=== PATIENT | male | born 1950 | race Caucasian/White ===

== ENCOUNTER 2016-09-12 10:48 | Emergency (ER) | payer MEDICARE, MEDICAID ==
[2016-09-12 11:27] VITALS: RESP 16; TEMP 98.5; BMI 40.9
--- NOTE | 2016-09-12 13:50 | RAD ---
PROCEDURE: Radiographs of the Right Forearm HISTORY: pain COMPARISON: None available. TECHNIQUE: Frontal and lateral views obtained. FINDINGS: BONES: No fracture or destructive lesion. JOINT SPACES: Unremarkable. OTHER FINDINGS: Atherosclerotic arterial vascular calcification distal forearm ulnar aspect - also noted along the volar aspect of the entire distal forearm IMPRESSION: No fracture or lytic lesion. Arteriovascular calcifications
--- NOTE | 2016-09-12 13:51 | RAD ---
PROCEDURE: Radiographs of the Right Shoulder HISTORY: pain COMPARISON: No prior. FINDINGS: BONES: Minimal subchondral sclerotic and cystic changes -juxta articular acromioclavicular joint and humeral head -greater tuberosity. No fracture. JOINTS: Glenohumeral and acromioclavicular osteoarthritis. SOFT TISSUES: Normal. OTHER FINDINGS: None. IMPRESSION: Arthrosis. No fracture or lytic lesion
--- NOTE | 2016-09-12 14:23 | ED PDOC ---
Arrival/HPI - General Chief Complaint: Upper Extremity Problem/Injury Time Seen by Provider: 09/12/16 12:32 Historian: Patient, Family - History of Present Illness Narrative History of Present Illness (Text): 09/12/16 14:58 Patient c/o right arm pain for several months, worse for the last 2 weeks. Patient sts he had surgery on the right wrist years ago in [place]. Pain is in the area of surgical scar and radiates up to the arm. Patient describes pain as electric shock feeling. Patient denies any fever, swelling, erythema, Denies any recent injuries. Past Medical History - Provider Review Nursing Documentation Reviewed: Yes - Infectious Disease Hx of Infectious Diseases: None - Tetanus Immunization Tetanus Immunization: Unknown - Cardiac Hx Cardiac Disorders: Yes Hx Hypertension: Yes - Pulmonary Hx Respiratory Disorders: Yes Hx Asthma: Yes - Neurological Hx Neurological Disorder: No - HEENT Hx HEENT Disorder: Yes Other/Comment: OTITIS - Renal Hx Renal Disorder: No - Endocrine/Metabolic Hx Endocrine Disorders: Yes Hx Diabetes Mellitus Type 1: Yes - Hematological/Oncological Hx Blood Disorders: No - Integumentary Hx Dermatological Disorder: No - Musculoskeletal/Rheumatological Hx Musculoskeletal Disorders: No - Gastrointestinal Hx Gastrointestinal Disorders: Yes Hx Diverticulitis: Yes - Genitourinary/Gynecological Hx Genitourinary Disorders: No - Psychiatric Hx Psychophysiologic Disorder: No Hx Depression: No Hx Substance Use: No - Past Surgical History Past Surgical History: No Previous - Surgical History Other/Comment: COLON - Anesthesia Hx Anesthesia: Yes - Suicidal Assessment Feels Threatened In Home Enviroment: No Family/Social History Family/Social History: Unknown Family HX Smoking Status: Current Some Days Smoker Hx Alcohol Use: No Hx Substance Use: No Hx Substance Use Treatment: No Allergies/Home Meds Allergies/Adverse Reactions: Allergies No Known Allergies Allergy (Verified 01/05/15 10:58) Home Medications: Home Meds Medication Instructions Recorded Confirmed Insulin Human Regular [HumuLIN R] 2 unit SC DAILY 09/04/12 01/05/15 Lisinopril 10 mg PO DAILY 09/04/12 01/05/15 Simvastatin 20 mg PO DAILY 09/04/12 01/05/15 Ibuprofen [Motrin Tab] 800 mg PO Q6 PRN 01/04/15 01/05/15 Insulin Glargine, Recombinan 55 units SC HS 01/05/15 01/05/15 [Lantus] Review of Systems - Physician Review All systems were reviewed & negative as marked: Yes - Review of Systems Musculoskeletal: Other (arm pain) Physical Exam Vital Signs Reviewed: Yes Vital Signs Temp Pulse Resp BP Pulse Ox 09/12/16 14:25 72 16 132/72 98 09/12/16 11:22 98.5 F 75 16 130/88 97 Temperature: Afebrile Blood Pressure: Normal Pulse: Regular Respiratory Rate: Normal Appearance: Positive for: Well-Appearing, Non-Toxic, Comfortable Pain Distress: None Mental Status: Positive for: Alert and Oriented X 3 - Systems Exam Head: Present: Atraumatic, Normocephalic Upper Extremity: Present: NORMAL PULSES, Capillary Refill < 2s, Other (hand muscular dystrophy, weakness of the hand, volar forearm with tenderness). No: Swelling, Erythema, Temperature Abnormalties Skin: Present: Warm, Dry, Normal Color. No: Rashes, Erythematous Medical Decision Making ED Course and Treatment: 09/12/16 15:10 Xray of shoulder and forearm didn't show any acute abnormalities. Patient was treated with Neurontin and was d/c home with PMD and Ortho follow up. - RAD Interpretation Radiology Orders: 09/12/16 12:32 FOREARM RIGHT [RAD] Stat SHOULDER RIGHT [RAD] Stat - Medication Orders Current Medication Orders: Discontinued Medications Gabapentin (Neurontin) 300 mg PO STAT STA Stop: 09/12/16 12:40 Last Admin: 09/12/16 13:11 Dose: 300 mg Disposition/Present on Arrival - Present on Arrival Any Indicators Present on Arrival: No History of DVT/PE: No History of Uncontrolled Diabetes: Yes Urinary Catheter: No History of Decub. Ulcer: No History Surgical Site Infection Following: None - Disposition Have Diagnosis and Disposition been Completed?: Yes Diagnosis: Arm pain Disposition: HOME/ ROUTINE Disposition Time: 14:21 Patient Plan: Discharge Condition: STABLE Discharge Instructions (ExitCare): Arm Pain (ED) Additional Instructions: Follow up with PMD and Orthopedist within 1-2 days. Return to ED if feel worse. Prescriptions: Gabapentin [Neurontin] 100 mg PO TID #60 capsule traMADol/Acetaminophen [Ultracet 325 MG-37.5 MG] 1 tab PO Q6 PRN #30 tab PRN Reason: Pain Referrals: Alexander Mireles MD [Primary Care Provider] - Follow up with primary Alysa Oconnor MD [Staff Provider] - Follow up with primary [employer] [facility] [Outside] - Follow up with primary Forms: [employer] (Albanian)
[2016-09-12 14:39] VITALS: BP 132/72; PULSE 72; O2SAT 98
== END 2016-09-12 14:25 | disposition home or self-care (01) ==
LOC: ED 10:48
DX: M79.601 Pain in right arm (principal); I10 Essential (primary) hypertension; E10.9 Type 1 diabetes mellitus without complications

== ENCOUNTER 2017-02-27 20:25 | Emergency (ER) | payer MEDICARE, MEDICAID ==
[2017-02-27 20:26] VITALS: BMI 40.9
[2017-02-27 20:52] VITALS: TEMP 98.6
--- NOTE | 2017-02-27 21:12 | ED PDOC ---
Arrival/HPI - General Chief Complaint: High Blood Sugar Time Seen by Provider: 02/27/17 20:32 Historian: Patient - History of Present Illness Narrative History of Present Illness (Text): 02/27/17 21:09 Alexander Hernandez is a 66 year old male, whose past medical history includes diabetes, hypertension, and hyperlipidemia, who presents to the Emergency department complaining of right shoulder pain today. Patient reports he has history of similar right shoulder pain in the past and notes he took Tramadol at home with relief. Patient also notes he was hyperglycemic earlier tonight with a blood sugar of 530. Patient states he took insulin at home prior to arrival, fingerstick in ED was 249. Patient states he feels completely fine and denies any fever, chest pain, shortness of breath, nausea, vomiting, back pain, neck pain, headache, dizziness, or any other complaints. PMD: Dr. Mireles Symptom Onset: Gradual Symptom Course: Unchanged Activities at Onset: Light Context: Home Past Medical History - Provider Review Nursing Documentation Reviewed: Yes - Infectious Disease Hx of Infectious Diseases: None - Tetanus Immunization Tetanus Immunization: Unknown - Cardiac Hx Cardiac Disorders: Yes Hx Hypertension: Yes - Pulmonary Hx Respiratory Disorders: Yes Hx Asthma: Yes - Neurological Hx Neurological Disorder: No - HEENT Hx HEENT Disorder: Yes Other/Comment: OTITIS - Renal Hx Renal Disorder: No - Endocrine/Metabolic Hx Endocrine Disorders: Yes Hx Diabetes Mellitus Type 1: Yes - Hematological/Oncological Hx Blood Disorders: No - Integumentary Hx Dermatological Disorder: No - Musculoskeletal/Rheumatological Hx Musculoskeletal Disorders: Yes Other/Comment: R SHOULDER PAIN - Gastrointestinal Hx Gastrointestinal Disorders: Yes Hx Diverticulitis: Yes - Genitourinary/Gynecological Hx Genitourinary Disorders: No - Psychiatric Hx Psychophysiologic Disorder: No Hx Depression: No Hx Substance Use: No - Past Surgical History Past Surgical History: No Previous - Surgical History Other/Comment: COLON - Anesthesia Hx Anesthesia: Yes - Suicidal Assessment Feels Threatened In Home Enviroment: No Family/Social History - Physician Review Nursing Documentation Reviewed: Yes Family/Social History: Unknown Family HX Smoking Status: Current Some Days Smoker Hx Alcohol Use: No Hx Substance Use: No Hx Substance Use Treatment: No Allergies/Home Meds Allergies/Adverse Reactions: Allergies No Known Allergies Allergy (Verified 02/27/17 20:45) Home Medications: Home Meds Medication Instructions Recorded Confirmed Insulin Human Regular [HumuLIN R] 2 unit SC DAILY 09/04/12 02/28/17 Lisinopril 10 mg PO DAILY 09/04/12 02/28/17 Simvastatin 20 mg PO DAILY 09/04/12 02/28/17 Ibuprofen [Motrin Tab] 800 mg PO Q6 PRN 01/04/15 02/28/17 Insulin Glargine, Recombinan 55 units SC HS 01/05/15 02/28/17 [Lantus] Review of Systems - Physician Review All systems were reviewed & negative as marked: Yes - Review of Systems Constitutional: Normal. absent: Fevers Eyes: Normal ENT: Normal Respiratory: Normal. absent: SOB, Cough Cardiovascular: Normal. absent: Chest Pain Gastrointestinal: Normal. absent: Abdominal Pain, Diarrhea, Nausea, Vomiting Genitourinary Male: Normal. absent: Dysuria, Frequency, Hematuria, Urinary Output Changes Musculoskeletal: Arthralgias (+right shoulder pain) Skin: Normal. absent: Rash Neurological: Normal. absent: Headache, Dizziness Endocrine: Other (+elevated blood sugar) Hemo/Lymphatic: Normal Psychiatric: Normal Physical Exam Vital Signs Reviewed: Yes Vital Signs Temp Pulse Resp BP Pulse Ox 02/27/17 23:11 73 18 146/94 H 99 02/27/17 20:46 98.6 F 89 17 147/90 98 Temperature: Afebrile Blood Pressure: Normal Pulse: Regular Respiratory Rate: Normal Appearance: Positive for: Well-Appearing, Non-Toxic, Comfortable Pain Distress: None Mental Status: Positive for: Alert and Oriented X 3 - Systems Exam Head: Present: Atraumatic, Normocephalic Pupils: Present: PERRL Extroacular Muscles: Present: EOMI Conjunctiva: Present: Normal Mouth: Present: Moist Mucous Membranes Neck: Present: Normal Range of Motion Respiratory/Chest: Present: Clear to Auscultation, Good Air Exchange. No: Respiratory Distress, Accessory Muscle Use Cardiovascular: Present: Regular Rate and Rhythm, Normal S1, S2. No: Murmurs Abdomen: Present: Normal Bowel Sounds. No: Tenderness, Distention, Peritoneal Signs Back: Present: Normal Inspection Upper Extremity: Present: Normal Inspection, Tenderness (mild palpable tenderness right anterior shoulder/discomfort with abduction). No: Cyanosis, Edema Lower Extremity: Present: Normal Inspection. No: Edema Neurological: Present: GCS=15, CN II-XII Intact, Speech Normal Skin: Present: Warm, Dry, Normal Color. No: Rashes Psychiatric: Present: Alert, Oriented x 3, Normal Insight, Normal Concentration Medical Decision Making ED Course and Treatment: 02/27/17 21:09 Impression: 66 year old male complaining of right shoulder pain and hyperglycemia. Plan: -- Labs -- XR Right Shoulder -- IV fluids -- Reassess and disposition Progress Notes: 02/27/17 22:08 XR Right Shoulder, shows chronic arthritic changes. 02/27/17 23:15 On re-evaluation, patient feels better and is in no acute distress. I have discussed the results and plan with the patient, who expresses understanding. Patient in agreement with plan to be discharged home. Patient is stable for discharge. Patient was instructed to follow up with physician or return if symptoms worsen or new concerning symptoms arise. - Lab Interpretations Lab Results: 02/27/17 22:25 02/27/17 22:25 Lab Results 02/27/17 22:25: WBC 5.3, RBC 5.07, Hgb 13.7 L, Hct 41.8 L, MCV 82.4, MCH 27.0, MCHC 32.8, RDW 13.6, Plt Count 209, MPV 10.4 02/27/17 22:25: Sodium 141, Potassium 4.6, Chloride 102, Carbon Dioxide 27, Anion Gap 16, BUN 21, Creatinine 1.1, Est GFR ( Amer) > 60, Est GFR (Non- Af Amer) > 60, Random Glucose 144 H, Calcium 9.8, Total Bilirubin 0.3, AST 20, ALT 40, Alkaline Phosphatase 69, Total Protein 7.5, Albumin 4.2, Globulin 3.3, Albumin/Globulin Ratio 1.3 02/27/17 20:38: POC Glucose (mg/dL) 249 H I have reviewed the lab results: Yes - RAD Interpretation Radiology Orders: 02/27/17 21:12 SHOULDER RIGHT [RAD] Stat Cuff Turner Machine 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: ED Physician - Medication Orders Current Medication Orders: Discontinued Medications Sodium Chloride (Sodium Chloride 0.9%) 500 mls @ 500 mls/hr IV .Q1H STA Stop: 02/27/17 22:15 Last Admin: 02/27/17 22:19 Dose: 500 mls/hr eMAR Start Stop Document 02/27/17 22:19 OCS (Rec: 02/27/17 22:20 OCS [id number]) Intravenous Solution Start Date 02/27/17 Start Time 22:20 End Date 02/27/17 End time 23:20 Total Infusion Time 60 - Scribe Statement The provider has reviewed the documentation as recorded by the Scribe Patricia Machado All medical record entries made by the Scribe were at my direction and personally dictated by me. I have reviewed the chart and agree that the record accurately reflects my personal performance of the history, physical exam, medical decision making, and the department course for this patient. I have also personally directed, reviewed, and agree with the discharge instructions and disposition. Disposition/Present on Arrival - Present on Arrival Any Indicators Present on Arrival: No History of DVT/PE: No History of Uncontrolled Diabetes: Yes Urinary Catheter: No History of Decub. Ulcer: No History Surgical Site Infection Following: None - Disposition Have Diagnosis and Disposition been Completed?: Yes Diagnosis: Diabetes mellitus, Bursitis Disposition: HOME/ ROUTINE Disposition Time: 23:15 Patient Plan: Discharge Condition: GOOD Discharge Instructions (ExitCare): Shoulder Bursitis (ED), Diabetes Mellitus Type 2 in Adults (ED) Additional Instructions: Continue your pain meds as prescribed/adjust your insulin dosing as explained/ follow up with your doctor this week Forms: [employer] (Hungarian)
[2017-02-27] MEDS ORDERED: Sodium Chloride 0.9% 500 ML IV STA (21:16)
[2017-02-27 22:34] LABS: HEMOGLOBIN 13.7 g/dL (14.0-18.0); MEAN CELL VOLUME 82.4 fl (80.0-105.0); MEAN CORPUSCULAR HGB CONC 32.8 g/dl (31.0-37.0); MEAN PLATELET VOLUME 10.4 fl (7.0-11.0); RBC 5.07 10^6/uL (3.5-6.1); RED CELL DISTRIBUTION WIDTH 13.6 % (11.5-14.5); WHITE BLOOD COUNT 5.3 10^3/ul (4.5-11.0)
[2017-02-27 22:45] LABS: ALB/GLOB RATIO 1.3 (1.1-1.8); ALBUMIN 4.2 g/dL (3.0-4.8); ALT/SGPT 40 U/L (7-56); AST/SGOT 20 U/L (17-59); BLOOD UREA NITROGEN 21 mg/dL (7-21); CALCIUM 9.8 mg/dL (8.4-10.5); GFR AFRICAN-AMERICAN > 60; GFR NON-AFRICAN AMERICAN > 60
[2017-02-27 23:11] VITALS: BP 146/94; PULSE 73; RESP 18; O2SAT 99
--- NOTE | 2017-02-28 08:19 | RAD ---
PROCEDURE: Radiographs of the Right Shoulder HISTORY: shoulder pain COMPARISON: No prior. FINDINGS: BONES: Normal. No fracture. JOINTS: Normal. Glenohumeral and acromioclavicular joints preserved. No osteoarthritis. SOFT TISSUES: Normal. OTHER FINDINGS: None. IMPRESSION: Normal radiographs of the right shoulder.
== END 2017-02-27 23:20 | disposition home or self-care (01) ==
LOC: ED 20:25
DX: E10.65 Type 1 diabetes mellitus with hyperglycemia (principal); Z79.4 Long term (current) use of insulin; M75.51 Bursitis of right shoulder; E78.5 Hyperlipidemia, unspecified; I10 Essential (primary) hypertension
CPT/HCPCS: 73030; 80053; 82948; 85027; 96360; 99283; J7040

== ENCOUNTER 2018-04-03 09:25 | Emergency (ER) | payer MEDICARE, MEDICAID ==
[2018-04-03 09:33] VITALS: BMI 39.9
[2018-04-03 09:37] VITALS: TEMP 97.3
--- NOTE | 2018-04-03 10:21 | ED PDOC ---
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 Patient states he lost his balance while getting out of bed. Patient informs he was dizzy prior to getting out of bed and is still dizzy in the emergency department. Patient states he has been feeling weak this month. Patient denies fevers, chills, headache, shortness of breath, dyspnea on exertion, cough, abdominal pain, nausea, vomiting, diarrhea, back pain, neck pain, or any other complaint. Time/Duration: 1-3 hours Symptom Onset: Sudden Symptom Course: Unchanged Quality: Stabbing (sharp chest pain) Activities at Onset: Light Context: Standing Past Medical History - Provider Review Nursing Documentation Reviewed: Yes - Infectious Disease Hx of Infectious Diseases: None - Tetanus Immunization Tetanus Immunization: Unknown - Cardiac Hx Cardiac Disorders: Yes Hx Hypertension: Yes - Pulmonary Hx Respiratory Disorders: Yes Hx Asthma: Yes - Neurological Hx Neurological Disorder: No - HEENT Hx HEENT Disorder: Yes Other/Comment: OTITIS - Renal Hx Renal Disorder: No - Endocrine/Metabolic Hx Endocrine Disorders: Yes Hx Diabetes Mellitus Type 1: Yes - Hematological/Oncological Hx Blood Disorders: No - Integumentary Hx Dermatological Disorder: No - Musculoskeletal/Rheumatological Hx Musculoskeletal Disorders: Yes Other/Comment: R SHOULDER PAIN - Gastrointestinal Hx Gastrointestinal Disorders: Yes Hx Diverticulitis: Yes - Genitourinary/Gynecological Hx Genitourinary Disorders: No - Psychiatric Hx Psychophysiologic Disorder: No Hx Substance Use: No - Past Surgical History Past Surgical History: No Previous - Surgical History Other/Comment: COLON - Anesthesia Hx Anesthesia: No Hx Anesthesia Reactions: No Hx Malignant Hyperthermia: No - Suicidal Assessment Feels Threatened In Home Enviroment: No Family/Social History - Physician Review Nursing Documentation Reviewed: Yes Family/Social History: No Known Family HX Smoking Status: Current Some Days Smoker Hx Alcohol Use: No Hx Substance Use: No Hx Substance Use Treatment: No Allergies/Home Meds Allergies/Adverse Reactions: Allergies No Known Allergies Allergy (Verified 04/03/18 09:33) Home Medications: Home Meds Medication Instructions Recorded Confirmed Insulin Human Regular [HumuLIN R] 2 unit SC DAILY 09/04/12 04/03/18 Lisinopril 10 mg PO BID 09/04/12 04/03/18 Insulin Glargine, Recombinan 55 units SC HS 01/05/15 04/03/18 [Lantus] Atorvastatin [Lipitor] 1 tab PO DAILY 04/03/18 04/03/18 Diclofenac Sodium [Diclofenac 1 tab PO DAILY 04/03/18 04/03/18 Sodium ER] Meclizine HCl [Motion Sickness II] 1 tab PO DAILY 04/03/18 04/03/18 Meloxicam [Mobic] 1 tab PO DAILY 04/03/18 04/03/18 Metformin HCl [Glucophage] 1 tab PO BID 04/03/18 04/03/18 Metoprolol Tartrate [Lopressor] 1 tab PO BID 04/03/18 04/03/18 Tamsulosin HCl [Flomax] 1 cap PO DAILY 04/03/18 04/03/18 traMADol/Acetaminophen [Ultracet 1 tab PO BID PRN 04/03/18 04/03/18 325 MG-37.5 MG] Review of Systems - Physician Review All systems were reviewed & negative as marked: Yes - Review of Systems Constitutional: absent: Fevers, Night Sweats Respiratory: absent: SOB, Cough Cardiovascular: Chest Pain Gastrointestinal: absent: Abdominal Pain, Diarrhea, Nausea, Vomiting Musculoskeletal: absent: Back Pain, Neck Pain Neurological: Dizziness. absent: Headache Physical Exam Vital Signs Reviewed: Yes Vital Signs Temp Pulse Pulse Resp BP BP Pulse Ox 04/03/18 09:50 93 H 132/78 04/03/18 09:33 97.3 F L 87 18 132/78 97 Temperature: Afebrile Blood Pressure: Normal Pulse: Regular Respiratory Rate: Normal Appearance: Positive for: Well-Appearing, Non-Toxic, Comfortable Pain Distress: None Mental Status: Positive for: Alert and Oriented X 3 Finger Stick Blood Glucose: 360 - Systems Exam Head: Present: Atraumatic, Normocephalic Pupils: Present: PERRL Extroacular Muscles: Present: EOMI Conjunctiva: Present: Normal Mouth: Present: Moist Mucous Membranes Neck: Present: Normal Range of Motion Respiratory/Chest: Present: Wheezes (minimal expiratory wheezing in right lung), Decreased Breath Sounds (diminished breath sounds bilaterally ). No: Clear to Auscultation, Good Air Exchange, Respiratory Distress, Accessory Muscle Use Cardiovascular: Present: Regular Rate and Rhythm, Normal S1, S2. No: Murmurs, Rub, Gallop Abdomen: Present: Distention. No: Tenderness, Peritoneal Signs Back: Present: Normal Inspection Upper Extremity: Present: Normal Inspection. No: Cyanosis, Edema Lower Extremity: Present: Normal Inspection, Neurovascularly Intact, Capillary Refill < 2 s. No: Edema Neurological: Present: GCS=15, Speech Normal Skin: Present: Warm, Dry, Normal Color. No: Rashes Psychiatric: Present: Alert, Oriented x 3, Normal Insight, Normal Concentration Medical Decision Making ED Course and Treatment: 04/03/18 09:28 Impression: Patient is a 67 year old male who presents to the emergency department with complaints of chest pain s/p fall Plan: -- Labs -- CT Head W/O Contrast -- EKG -- Chest X-Ray -- Urinalysis -- IV Insertion -- Reassess and disposition Prior Visits: Notes and results from previous visits were reviewed. Progress Notes: 04/03/18 16:12 Labs reviewed with patient's blood sugars noted to be initially in 300s. Labs show absence of anion gap or evidence of DKA. Subsequent blood sugar measurements and 4L reveal a final FSG of 172. Patient updated on results and will follow up with his PCP for medication reconciliation. He demonstrates understanding and will follow up. - Lab Interpretations Lab Results: 04/03/18 10:15 04/03/18 10:15 Lab Results 04/03/18 12:13: POC Glucose (mg/dL) 307 H 04/03/18 11:10: Urine Color Yellow, Urine Appearance Clear, Urine pH 6.0, Ur Specific [place] 1.025, Urine Protein Trace H, Urine Glucose (UA) 500 H, Urine Ketones Negative, Urine Blood Negative, Urine Nitrate Negative, Urine Bilirubin Negative, Urine Urobilinogen 0.2, Ur Leukocyte Esterase Negative, Urine RBC 0 - 2, Urine WBC 1 - 3, Ur Epithelial Cells 0 - 2, Amorphous Sediment Few, Urine Bacteria Many, Coarse Granular Casts Trace, Urine Other Uyeast 04/03/18 10:15: PT 13.5 H, INR 1.19, APTT 38.4 H 04/03/18 10:15: Sodium 139, Potassium 4.3, Chloride 101, Carbon Dioxide 30, Anion Gap 13, BUN 24 H, Creatinine 1.1, Est GFR ( Amer) > 60, Est GFR (Non-Af Amer) > 60, Random Glucose 324 H* D, Calcium 9.5, Total Bilirubin 0.5, AST 15 L D, ALT 16, Alkaline Phosphatase 92, Troponin I < 0.01, NT-Pro-B Natriuret Pep 52.7, Total Protein 7.7, Albumin 4.4, Globulin 3.2, Albumin/Globulin Ratio 1.4 04/03/18 10:15: WBC 5.5, RBC 5.38, Hgb 14.4, Hct 44.1, MCV 82.0, MCH 26.8, MCHC 32.7, RDW 13.5, Plt Count 205, MPV 11.0, Neut % (Auto) 72.2 H, Lymph % (Auto) 19.5 L, Hyde % (Auto) 6.5 H, Eos % (Auto) 1.4 L, Baso % (Auto) 0.4, Lymph # (Auto) 1.1 L, Hyde # (Auto) 0.4, Eos # (Auto) 0.1, Baso # (Auto) 0.02, Absolute Neuts (auto) 3.99, ESR 26 H 04/03/18 09:44: POC Glucose (mg/dL) 360 H I have reviewed the lab results: Yes - RAD Interpretation Narrative RAD Interpretations (Text): 04/03/18 15:26 Chest X-Ray shows: FINDINGS: LUNGS: No active pulmonary disease. PLEURA: No significant pleural effusion identified, no pneumothorax apparent. CARDIOVASCULAR: No aortic atherosclerotic calcification present. Normal cardiac size. No pulmonary vascular congestion. OSSEOUS STRUCTURES: No significant abnormalities. VISUALIZED UPPER ABDOMEN: Normal. OTHER FINDINGS: None. IMPRESSION: No active disease. 04/03/18 16:18 CT Head W/O Contrast shows: FINDINGS: HEMORRHAGE: No intracranial hemorrhage. BRAIN: Stable mild diffuse cerebral atrophy is appreciated with interval trace periventricular chronic microangiopathy white-matter signal lucency appreciated. There is no mass effect. Midline brain anatomy is unremarkable and there is no suspicious extra-axial collection appreciated throughout. VENTRICLES: Unremarkable. No hydrocephalus. CALVARIUM: No destructive bony lesion or displaced fracture identified including through the skullbase. PARANASAL SINUSES: Unremarkable as visualized. No significant inflammatory changes. MASTOID AIR CELLS: Unremarkable as visualized. No inflammatory changes. OTHER FINDINGS: None. IMPRESSION: Age-appropriate age related neuro degenerative changes are appreciated in the interval. No acute intracranial findings or fracture appreciable. 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 - Medication Orders Current Medication Orders: 04/03/18 16:17 Discontinued Medications Sodium Chloride (Sodium Chloride 0.9%) 1,000 mls @ 999 mls/hr IV .Q1H1M STA Stop: 04/03/18 12:02 Last Admin: 04/03/18 11:17 Dose: 999 mls/hr eMAR Start Stop Document 04/03/18 11:17 KV (Rec: 04/03/18 11:18 KV [id number]) Intravenous Solution Start Date 04/03/18 Start Time 11:18 Sodium Chloride (Sodium Chloride 0.9%) 1,000 mls @ 999 mls/hr IV .Q1H1M STA Stop: 04/03/18 13:27 Last Admin: 04/03/18 12:32 Dose: 999 mls/hr eMAR Start Stop Document 04/03/18 12:32 KV (Rec: 04/03/18 12:32 KV [id number]) Intravenous Solution Start Date 04/03/18 Start Time 12:32 Sodium Chloride (Sodium Chloride 0.9%) 1,000 mls @ 999 mls/hr IV .Q1H1M STA Stop: 04/03/18 15:39 Last Admin: 04/03/18 14:42 Dose: 999 mls/hr eMAR Start Stop Document 04/03/18 14:42 KV (Rec: 04/03/18 14:42 KV [id number]) Intravenous Solution Start Date 04/03/18 Start Time 14:42 Insulin Human Regular (Humulin R) 6 units SC ONCE ONE Stop: 04/03/18 11:04 Last Admin: 04/03/18 11:16 Dose: 6 unit MAR Blood Glucose Document 04/03/18 11:16 KV (Rec: 04/03/18 11:17 KV [id number]) Blood Glucose Finger Stick Blood Glucose (70-120) 360 Subcutaneous Administrations Document 04/03/18 11:16 KV (Rec: 04/03/18 11:17 KV [id number]) Injection Site MAR Injection Site Right Arm Charges for Administration # of Subcutaneous Administrations 1 - Scribe Statement The provider has reviewed the documentation as recorded by the Scribe Aleksey Shipley All medical record entries made by the Scribe were at my direction and personally dictated by me. I have reviewed the chart and agree that the record accurately reflects my personal performance of the history, physical exam, medical decision making, and the department course for this patient. I have also personally directed, reviewed, and agree with the discharge instructions and disposition. Disposition/Present on Arrival - Present on Arrival Any Indicators Present on Arrival: Yes History of DVT/PE: No History of Uncontrolled Diabetes: Yes Urinary Catheter: No History of Decub. Ulcer: No History Surgical Site Infection Following: None - Disposition Have Diagnosis and Disposition been Completed?: Yes Diagnosis: Hyperglycemia Disposition Time: 16:17 Patient Plan: Discharge Discharge Instructions (ExitCare): Hyperglycemia, Adult (DC) Print Language: [id number] Additional Instructions: All medical record entries made by the Scribe were at my direction and personally dictated by me. I have reviewed the chart and agree that the record accurately reflects my personal performance of the history, physical exam, medical decision making, and the department course for this patient. I have also personally directed, reviewed, and agree with the discharge instructions and disposition. Please follow up with your PCP in 1-2 days Referrals: Alexander Mireles MD [Primary Care Provider] - Follow up with primary Forms: SHERPA assistant (Turkish)
[2018-04-03 10:28] LABS: BASO # 0.02 K/mm3 (0.0-2.0); BASO % 0.4 % (0.0-3.0); EOS # 0.1 (0.0-0.7); EOS % 1.4 % (1.5-5.0); HEMOGLOBIN 14.4 g/dL (14.0-18.0); LYMPH # 1.1 (1.2-3.4); LYMPH % 19.5 % (22.0-35.0); MEAN CORPUSCULAR HEMOGLOBIN 26.8 pg (25.0-35.0); MEAN CORPUSCULAR HGB CONC 32.7 g/dl (31.0-37.0); MONO # 0.4 (0.1-0.6); MONO % 6.5 % (1.0-6.0); RBC 5.38 10^6/uL (3.5-6.1); RED CELL DISTRIBUTION WIDTH 13.5 % (11.5-14.5); WHITE BLOOD COUNT 5.5 10^3/uL (4.5-11.0)
[2018-04-03 10:35] LABS: INR 1.19; PARTIAL THROMBOPLASTIN TIME 38.4 Seconds (26.9-38.3); PROTHROMBIN TIME 13.5 SECONDS (9.4-12.5)
[2018-04-03 10:48] LABS: B-TYPE NATRIURETIC PEPTIDE 52.7 pg/mL (0-450); TROPONIN I < 0.01 ng/mL
[2018-04-03 10:59] LABS: ALB/GLOB RATIO 1.4 (1.1-1.8); ALBUMIN 4.4 g/dL (3.0-4.8); ALT/SGPT 16 U/L (7-56); AST/SGOT 15 U/L (17-59); BLOOD UREA NITROGEN 24 mg/dL (7-21); CALCIUM 9.5 mg/dL (8.4-10.5); GFR NON-AFRICAN AMERICAN > 60
[2018-04-03] MEDS ORDERED: Sodium Chloride 0.9% 1,000 ML IV STA ×3 (11:02→14:39)
[2018-04-03] MEDS ORDERED: Insulin Regular 1 UNITS/0.01 ML ML SC ONE (11:03)
--- NOTE | 2018-04-03 11:19 | CT ---
Date of service: 04/03/2018 PROCEDURE: CT HEAD WITHOUT CONTRAST. HISTORY: fall COMPARISON: Unenhanced head CT 09/17/2012. TECHNIQUE: Axial computed tomography images were obtained through the head/brain without intravenous contrast. Radiation dose: Total exam DLP = 993.44 mGy-cm. This CT exam was performed using one or more of the following dose reduction techniques: Automated exposure control, adjustment of the mA and/or kV according to patient size, and/or use of iterative reconstruction technique. FINDINGS: HEMORRHAGE: No intracranial hemorrhage. BRAIN: Stable mild diffuse cerebral atrophy is appreciated with interval trace periventricular chronic microangiopathy white-matter signal lucency appreciated. There is no mass effect. Midline brain anatomy is unremarkable and there is no suspicious extra-axial collection appreciated throughout. VENTRICLES: Unremarkable. No hydrocephalus. CALVARIUM: No destructive bony lesion or displaced fracture identified including through the skullbase. PARANASAL SINUSES: Unremarkable as visualized. No significant inflammatory changes. MASTOID AIR CELLS: Unremarkable as visualized. No inflammatory changes. OTHER FINDINGS: None. IMPRESSION: Age-appropriate age related neuro degenerative changes are appreciated in the interval. No acute intracranial findings or fracture appreciable.
[2018-04-03 11:25] LABS: URINE BILIRUBIN NEGATIVE (NEGATIVE); URINE BLOOD NEGATIVE (NEGATIVE); URINE GLUCOSE (UA) 500 mg/dL (NEGATIVE); URINE LEUKOCYTE ESTERASE NEGATIVE Leu/uL (NEGATIVE); URINE PROTEIN TRACE mg/dL (<30 mg/dL); URINE UROBILINOGEN 0.2 E.U./dL (<1 E.U./dL)
[2018-04-03 11:27] LABS: URINE APPEARANCE CLEAR (CLEAR); URINE COLOR YELLOW (YELLOW)
[2018-04-03 11:34] LABS: URINE RBC 0 - 2 /hpf (0-2)
[2018-04-03 11:35] LABS: URINE AMORPHOUS SEDIMENT FEW /hpf; URINE BACTERIA MANY /hpf; URINE COARSE GRANULAR CAST TRACE /hpf; URINE EPITHELIAL CELLS 0 - 2 /hpf (0-5)
--- NOTE | 2018-04-03 12:21 | RAD ---
Date of service: 04/03/2018 HISTORY: sob COMPARISON: 08/15/2017 FINDINGS: LUNGS: No active pulmonary disease. PLEURA: No significant pleural effusion identified, no pneumothorax apparent. CARDIOVASCULAR: No aortic atherosclerotic calcification present. Normal cardiac size. No pulmonary vascular congestion. OSSEOUS STRUCTURES: No significant abnormalities. VISUALIZED UPPER ABDOMEN: Normal. OTHER FINDINGS: None. IMPRESSION: No active disease.
[2018-04-03 14:44] VITALS: RESP 16
--- NOTE | 2018-04-03 15:11 | CARD ---
APPROVED REPORT Date of service: 04/03/2018 EKG Measurement Heart [id number] <Conclusion> Poor data quality, interpretation may be adversely affected Normal sinus rhythm Right bundle branch block T wave abnormality, consider inferior ischemia Abnormal ECG
[2018-04-03 16:12] VITALS: BP 158/86; PULSE 77; O2SAT 100
== END 2018-04-03 16:34 | disposition home or self-care (01) ==
LOC: ED 09:25
DX: E10.65 Type 1 diabetes mellitus with hyperglycemia (principal); E78.5 Hyperlipidemia, unspecified; I10 Essential (primary) hypertension; Z79.4 Long term (current) use of insulin
CPT/HCPCS: 70450; 71045; 80053; 81001; 82948; 83880; 84484; 85025; 85610; 85651; 85730; 93005; 96372; 99285; J7030